=== PATIENT | female | born 1935 | race American Indian/Alaskan Native ===

== ENCOUNTER → 2016-11-16 | Outpatient (CLI) | payer OTHER ==
--- NOTE | 2016-11-16 11:26 | KCIC ---
PROCEDURE MR of the left foot HISTORY Twisting injury August 2016. Continued midfoot pain and swelling. TECHNIQUE Standard noncontrast images are obtained. COMPARISON None FINDINGS No evidence of acute fracture or aggressive bone destruction. There is some subtle subchondral marrow edema about the foot of doubtful significance. This could indicate bone turnover such as from osteoporosis. Lisfranc ligament complex is intact. Tarsometatarsal alignment is intact. The flexor tendons are intact. The extensor tendons are intact. No significant tendon sheath fluid. There is mild generalized soft tissue edema around the foot. Edema is greatest within the dorsal subcutaneous tissues. No acute sesamoiditis. No significant joint effusion. Mild thickening of the plantar aponeurosis at the calcaneus, with a small enthesophyte, compatible with chronic fasciitis. No evidence of acute edema or acute plantar fasciitis. IMPRESSION 1. No evidence of Lisfranc ligament tear or tarsometatarsal malalignment. 2. Mild chronic plantar fasciitis. Electronically signed by: Nabil Hernández MD (Nov 16, 2016 11:24:54)
== END | disposition home or self-care (01) ==
LOC: KCIC MRI 10:14
PROVIDERS: ATTEND Podiatrist Foot & Ankle Surgery
DX: S93.492A Sprain of other ligament of left ankle, initial encounter (principal); M79.89 Other specified soft tissue disorders; W19.XXXA Unspecified fall, initial encounter; Y93.89 Activity, other specified; Y99.8 Other external cause status
CPT/HCPCS: 73718